=== PATIENT | female | born 1930 | race Hispanic/Latino ===

== ENCOUNTER 2017-09-07 14:36 | Emergency (ER) | payer OTHER, SELFPAY ==
[2017-09-07] MEDS ORDERED: FENTANYL CITR 100 MCG/2 ML ONE (15:50)
[2017-09-07] MEDS ORDERED: ONDANSETRON 4 MG/2 ML VIAL ONE (15:51)
[2017-09-07] MEDS ORDERED: NA CHLORIDE 0.9% 1,000 ML ONE (15:52)
--- NOTE | 2017-09-07 16:09 | RAD REPORT ---
EXAM DESCRIPTION: CT - Pelvis Wo Cont - 09/07/2017 3:45 pm CLINICAL HISTORY: History of fall with left-sided hip pain. COMPARISON: None. TECHNIQUE: All CT scans are performed using dose optimization technique as appropriate and may inclu de automated exposure control or mA/KV adjustment according to patient size. FINDINGS: Prominent osteopenia is present. Cortical regularity is noted along the anterior aspect of the left sacral ala, likely indicating a sacral insufficiency fracture. Proximal left femur demonstr ates hardware in place. No evidence of hardware loosening or infection. Slight angulation of the inferior coccygeal segments is noted which may be related to previous trauma . No acute intrapelvic finding such as hematoma or pathologic fluid. Sigmoid diverticulosis is noted wi thout diverticulitis. Aortic atherosclerosis is seen. IMPRESSION: Insufficiency fracture suspected left sacral ala. Proximal femoral orthopedic hardware is present without evidence of loosening. Pronounced osteopenia.
[2017-09-07 16:27] LABS: Absolute Lymphocytes (CBC) 1.7 K/uL (0.7-4.9); Absolute Monocytes 0.6 K/uL (0.1-1.3); Absolute Neutrophil 5.6 K/uL (1.8-8.0); Basophils % 0.4 % (0-1.3); Eosinophils % 0.3 % (0-4.4); Hematocrit 36.4 % (36.0-45.0); Lymphocytes % 21.7 % (15.3-44.8); MCH 29.8 pg (27.0-35.0); MCV 88.2 fL (80-100); Monocytes % 7.8 % (3.3-12.3); RBC Red Blood Cell Count 4.12 M/uL (3.86-4.86)
[2017-09-07 16:35] LABS: Protime INR 0.87
[2017-09-07 16:41] LABS: Bicarbonate 28 mEq/L (21-31); Glucose Level 79 mg/dL (65-120); Potassium 4.1 mEq/L (3.6-5.0); Sodium Level 140 mEq/L (135-145)
--- NOTE | 2017-09-07 16:45 | RAD REPORT ---
EXAM DESCRIPTION: RAD - Hip Left 2 View - 09/07/2017 4:24 pm CLINICAL HISTORY: Fall several days earlier, persistent hip pain COMPARISON: None. FINDINGS: AP and frogleg views of the left hip were obtained. No acute fracture changes identified. Fracture fixation hardware is in place. No breakage of the hardware. Bones are diffusely osteopenic. Joint space narrowing is seen. No AVN or focal acute femoral head process. There are degenerative celi nges to the articular surfaces of both the femur and acetabulum. No pathologic bone process. Left hem ipelvis is grossly normal but limited in detail. Sacral ala is obscured. No periarticular mass or hematoma. 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 No acute bone finding identifiable.
[2017-09-07 16:47] LABS: ALT/SGPT 30 IU/L (10-60); AST/SGOT 21 IU/L (10-42); Albumin 3.2 g/dL (3.2-5.5); Alkaline Phosphatase 117 IU/L (42-121); BUN Blood Urea Nitrogen 13 mg/dL (6-20); Bilirubin Direct 0.1 mg/dL (0-0.2); Bilirubin Total 0.4 mg/dL (0.3-1.2); Creatine Phosphokinase 24 IU/L (22-269); Magnesium 1.5 mg/dL (1.8-2.5); Protein, Total 6.5 g/dL (6.0-8.3)
--- NOTE | 2017-09-07 16:47 | RAD REPORT ---
EXAM DESCRIPTION: RAD - Pelvis - 09/07/2017 4:24 pm CLINICAL HISTORY: Persistent pelvic and hip pain following fall several days earlier COMPARISON: None. TECHNIQUE: AP imaging of the pelvis was obtained. FINDINGS: Bones are diffusely osteopenic which limits assessment. This is particularly true of the l ower lumbar spine, sacral ala and SI joints. Degenerative changes are present at both hip joints. Vilma gical hardware is also present on the left. No fracture or dislocation of either proximal femur ident ifiable. No lower pelvic fractures seen. Lower lumbar, SI joint and sacral ala regions are too obscur ed by the osteopenia and overlying bowel to allow an accurate assessment. IMPRESSION: Osteopenic, postsurgical and degenerative changes are present. No acute fracture changes are seen though the sacral ala, SI joints and upper pelvis are quite limite d in assessment.
--- NOTE | 2017-09-07 16:49 | RAD REPORT ---
EXAM DESCRIPTION: RAD - Chest Single View - 09/07/2017 4:24 pm CLINICAL HISTORY: Fall, shortness of breath, pelvic and hip pain, possible acute fracture COMPARISON: May 2017 TECHNIQUE: AP portable chest image was obtained 1616 hours . 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 With fibrosis and shallow inspiration, early interstitial infiltrate or edema could be masked. No peripheral conso lidation or mass lesion. Heart size is not substantially different. Trachea is midline. No measurable pleural effusion and no pneumothorax. No gross bony abnormality seen. No acute aortic findings suspe cted. IMPRESSION: Extensive interstitial fibrotic pattern accentuated by shallow inspiration. In this setting early interstitial edema or infiltrate could be masked.
--- NOTE | 2017-09-07 17:08 | ER ---
Nurse's Notes [facility] Name: Brenda Matamoros Age: 87 yrs Sex: Female : 1930 Arrival Date: 09/07/2017 Time: 14:40 Bed 30 Private MD: Diagnosis: Fall due to bumping against object;Fracture of unspecified parts of lumbosacral spine and pelvis-left sacral ala fracture, insufficent;Hypomagnesemia;Cystitis Presentation: 09/07 14:43 Presenting complaint: Child states: Left hip pain since fall on Monday. Slip and fall aj onto bottom on Monday while in bathroom. Care prior to arrival: None. Mechanism of Injury: Fall from standing position. Trauma event details: Injury occurred in the [facility], Injury occurred: at home. Injury occurred: September 03, 2017. 14:43 Acuity: FARZANEH 4 aj 14:43 Method Of Arrival: Wheelchair aj 14:46 Transition of care: patient was not received from another setting of care. Onset of aj symptoms was September 07, 2017. Initial Sepsis Screen: Does the patient meet any 2 criteria? No. Patient's initial sepsis screen is negative. Does the patient have a suspected source of infection? No. Patient's initial sepsis screen is negative. Trauma Activation: Not Applicable Physician: ED Physician; Name: ; Notified At: ; Arrived At: Physician: General Surgeon; Name: ; Notified At: ; Arrived At: Physician: Radiology; Name: ; Notified At: ; Arrived At: Physician: Respiratory; Name: ; Notified At: ; Arrived At: Physician: Lab; Name: ; Notified At: ; Arrived At: Historical: - Allergies: 14:49 No Known Allergies; aj - Home Meds: 14:49 Zestril 10 mg oral tab 1 tab once daily [Active]; aspirin 81 mg Oral chew 1 tab once aj daily [Active]; levetiracetam 500 mg oral tab 1 tab 2 times per day [Active]; magnesium oxide 400 mg Oral cap [Active]; Naproxen Oral [Active]; - PMHx: 14:49 Brain Tumor; Alzheimers; aj - PSHx: 14:49 Appendectomy; aj - Immunization history: Last tetanus immunization: - up to date. - Social history:: Smoking status: Patient/guardian denies using tobacco. - Family history:: not pertinent. Screenin:20 Abuse screen: Denies threats or abuse. Nutritional screening: No deficits noted. mb3 Tuberculosis screening: No symptoms or risk factors identified. Fall Risk No secondary diagnosis (0 pts). No IV (0 pts). Ambulatory Aid- Crutches/Cane/Walker (15 pts). Gait- Normal/Bed Rest/Wheelchair (0 pts) Mental Status- Oriented to own ability (0 pts). Total Horta Fall Scale indicates No Risk (0-24 pts). Primary Survey: 14:43 A: Airway: patent. Breathing/Chest: Respiratory pattern: regular, Respiratory effort: aj spontaneous, unlabored, Breath sounds: clear, bilaterally. Circulation: Skin color: pink, Skin temperature: warm, dry. Disability Alert. 15:00 Reassessment Airway Airway Patent Breathing/Chest Respiratory pattern Regular mb3 Respiratory effort Spontaneous Unlabored. Assessment: 14:43 General: Appears in no apparent distress. comfortable, Behavior is calm, cooperative, aj appropriate for age. Pain: Complains of pain in left hip. Neuro: Level of Consciousness is awake, alert, obeys commands, Oriented to person, place, time, situation, Appropriate for age. Respiratory: Airway is patent Respiratory effort is even, unlabored, Respiratory pattern is regular, symmetrical. Derm: Skin is intact, is healthy with good turgor, Skin is pink, warm \T\ dry. normal. 15:19 Reassessment: No changes from previously documented assessment. Patient and/or family mb3 updated on plan of care and expected duration. Pain level reassessed. Patient is alert, oriented x 3, equal unlabored respirations, skin warm/dry/pink. Patient denies pain at this time. only has pain when ambulating. . 16:30 Reassessment: No changes from previously documented assessment. Patient and/or family mb3 updated on plan of care and expected duration. Pain level reassessed. Patient is alert, oriented x 3, equal unlabored respirations, skin warm/dry/pink. Patient denies pain at this time. 17:35 Reassessment: No changes from previously documented assessment. Patient and/or family mb3 updated on plan of care and expected duration. Pain level reassessed. Patient is alert, oriented x 3, equal unlabored respirations, skin warm/dry/pink. Patient denies pain at this time. Patient states symptoms have improved. 19:05 Reassessment: No changes from previously documented assessment. Patient and/or family mb3 updated on plan of care and expected duration. Pain level reassessed. Patient is alert, oriented x 3, equal unlabored respirations, skin warm/dry/pink. Patient denies pain at this time. 20:22 Reassessment: Patient appears in no apparent distress at this time. No changes from mb3 previously documented assessment. Patient and/or family updated on plan of care and expected duration. Pain level reassessed. Patient is alert, oriented x 3, equal unlabored respirations, skin warm/dry/pink. Patient denies pain at this time. 21:00 Reassessment: Patient appears in no apparent distress at this time. No changes from mb3 previously documented assessment. Patient and/or family updated on plan of care and expected duration. Pain level reassessed. Patient is alert, oriented x 3, equal unlabored respirations, skin warm/dry/pink. Patient denies pain at this time. Vital Signs: 14:43 BP 158 / 63; Pulse 90; Resp 16; Temp 98.0; Pulse Ox 100% on R/A; Weight 43.09 kg; aj Height 4 ft. 11 in. (149.86 cm); 16:11 BP 200 / 77; Pulse 84; Resp 14; Pulse Ox 100% on R/A; Pain 0/10; mb3 16:30 BP 156 / 64; Pulse 76; Resp 18; Pulse Ox 97% on R/A; mb3 17:15 BP 177 / 68; Pulse 77; Resp 16; Pulse Ox 97% on R/A; mb3 18:56 BP 169 / 103; Pulse 79; Resp 17; Temp 98.2(O); Pulse Ox 99% on R/A; mb3 20:00 BP 176 / 68; Pulse 85; Resp 16; Pulse Ox 98% on R/A; Pain 0/10; mb3 20:59 BP 182 / 71; Pulse 85; Resp 18; Pulse Ox 98% ; mb3 14:43 Body Mass Index 19.19 (43.09 kg, 149.86 cm) aj [place] Coma Score: 14:43 Eye Response: spontaneous(4). Verbal Response: oriented(5). Motor Response: obeys aj commands(6). Total: 15. Trauma Score (Adult): 14:43 Eye Response: spontaneous(1); Verbal Response: oriented(1); Motor Response: obeys aj commands(2); Systolic BP: > 89 mm Hg(4); Respiratory Rate: 10 to 29 per min(4); Shelli Score: 15; Trauma Score: 12 ED Course: 14:40 Patient arrived in ED. sb2 14:45 Triage completed. aj 14:49 Arm band placed on right wrist. Patient placed in an exam room. aj 15:01 Armand Ansari MD is Attending Physician. celi 15:05 Richard Kirk, MERLYN is Primary Nurse. mb3 15:20 Patient has correct armband on for positive identification. Bed in low position. Call mb3 light in reach. Side rails up X 1. 15:21 Patient maintains SpO2 saturation greater than 95% on room air. Thermoregulation: warm mb3 blanket given to patient. 15:[address] vr 15:46 Pelvis Wo Cont In Process Unspecified. EDMS 15:49 CT completed. Patient tolerated procedure well. Patient moved back from CT. nj 16:08 EKG done, by clinical dietetic technician. reviewed by Armand Ansari MD. dt2 16:10 Inserted saline lock: 18 gauge in right forearm, using aseptic technique. mb3 16:22 XRAY Chest (1 view) In Process Unspecified. EDMS 16:22 Pelvis XRAY In Process Unspecified. EDMS 16:22 Hip Left 2 View XRAY In Process Unspecified. EDMS 17:08 Campos Panchal MD is Referral Physician. celi 21:01 No provider procedures requiring assistance completed. IV discontinued, intact, mb3 bleeding controlled, No redness/swelling at site. Pressure dressing applied. Administered Medications: 16:09 Drug: fentaNYL (PF) 25 mcg Route: IVP; Site: right forearm; mb3 16:47 Follow up: Response: No adverse reaction; Pain is decreased mb3 20:57 Follow up: Response: No adverse reaction; Pain is decreased mb3 16:09 Drug: Zofran 4 mg Route: IVP; Site: right forearm; mb3 16:47 Follow up: Response: No adverse reaction mb3 20:57 Follow up: Response: No adverse reaction mb3 16:47 Drug: NS 0.9% 1000 ml Route: IV; Rate: 125 ml/hr; Site: right forearm; mb3 20:57 Follow up: Response: No adverse reaction; IV Status: Completed infusion; IV Intake: mb3 375ml 17:45 Drug: Magnesium Sulfate 1 grams Route: IVPB; Infused Over: 1 hrs; Site: right forearm; mb3 20:56 Follow up: Response: No adverse reaction; IV Status: Completed infusion; IV Intake: [id number] 19:17 Drug: Rocephin - (cefTRIAXone) 1 grams Route: IVPB; Infused Over: 30 mins; Site: right mb3 forearm; 20:56 Follow up: Response: No adverse reaction; IV Status: Completed infusion; IV Intake: [id number] Intake: 20:56 IV: 50ml; Total: 50ml. mb3 20:56 IV: 25ml; Total: 75ml. mb3 20:57 IV: 375ml; Total: 450ml. mb3 21:03 PO: 60ml; Total: 510ml. mb3 Output: 21:03 Urine: 300ml (Voided); Total: 300ml. mb3 Outcome: 17:08 Discharge ordered by . celi 21:01 Discharged to home ambulatory, with family. mb3 21:01 Condition: stable 21:01 Discharge instructions given to patient, family, Instructed on discharge instructions, follow up and referral plans. medication usage, Demonstrated understanding of instructions, follow-up care, medications, Prescriptions given X 2. 21:03 Patient's length of stay in the Emergency Department was greater than 2 hours. mb3 21:04 Patient left the ED. mb3 Signatures: Dispatcher [employer] EDMS Radha Galeas RN RN aj Anderson, Corey, MD MD cha Davis, Victoria vr Jordan, Nathan nj Billeau, Sheri sb2 Teague, Danielle dt2 Richard Kirk RN RN mb3 Corrections: (The following items were deleted from the chart) 19:03 18:56 BP 169 / 103; Pulse 79bpm; Resp 17bpm; Pulse Ox 99% RA; Temp 102.7F Oral; mb3 mb3
--- NOTE | 2017-09-07 17:08 | EDPHYS ---
Physician Documentation [facility] Name: Brenda Matamoros Age: 87 yrs Sex: Female : 1930 Arrival Date: 09/07/2017 Time: 14:40 Bed 30 Private MD: ED Physician Armand Ansari HPI: 09/07 15:29 This 87 yrs old Female presents to ER via Wheelchair with complaints of Fall celi Injury, Hip Pain. 15:29 Details of fall: The patient fell from an upright position, while walking. Onset: The celi symptoms/episode began/occurred 4 day(s) ago. Associated injuries: The patient sustained left hip, left gluteal fold, left inner thigh and left upper thigh, painful injury. Severity of symptoms: At their worst the symptoms were mild, in the emergency department the symptoms are unchanged. The patient has not experienced similar symptoms in the past. Historical: - Allergies: 14:49 No Known Allergies; aj - Home Meds: 14:49 Zestril 10 mg oral tab 1 tab once daily [Active]; aspirin 81 mg Oral chew 1 tab once aj daily [Active]; levetiracetam 500 mg oral tab 1 tab 2 times per day [Active]; magnesium oxide 400 mg Oral cap [Active]; Naproxen Oral [Active]; - PMHx: 14:49 Brain Tumor; Alzheimers; aj - PSHx: 14:49 Appendectomy; aj - Immunization history: Last tetanus immunization: - up to date. - Social history:: Smoking status: Patient/guardian denies using tobacco. - Family history:: not pertinent. ROS: 15:29 Constitutional: Negative for fever, chills, and weight loss, Eyes: Negative for injury, celi pain, redness, and discharge, ENT: Negative for injury, pain, and discharge, Neck: Negative for injury, pain, and swelling, Cardiovascular: Negative for chest pain, palpitations, and edema, Respiratory: Negative for shortness of breath, cough, wheezing, and pleuritic chest pain, Abdomen/GI: Negative for abdominal pain, nausea, vomiting, diarrhea, and constipation, Back: Negative for injury and pain, : Negative for injury, bleeding, discharge, and swelling, Skin: Negative for injury, rash, and discoloration, Neuro: Negative for headache, weakness, numbness, tingling, and seizure, Psych: Negative for depression, anxiety, suicide ideation, homicidal ideation, and hallucinations, Allergy/Immunology: Negative for hives, rash, and allergies, Endocrine: Negative for neck swelling, polydipsia, polyuria, polyphagia, and marked weight changes, Hematologic/Lymphatic: Negative for swollen nodes, abnormal bleeding, and unusual bruising. 15:29 MS/extremity: Positive for injury or acute deformity, decreased range of motion, of the left hip, left gluteal fold, left inner thigh and left upper thigh. Exam: 15:29 Constitutional: This is a well developed, well nourished patient who is awake, alert, celi and in no acute distress. Head/Face: Normocephalic, atraumatic. Eyes: Pupils equal round and reactive to light, extra-ocular motions intact. Lids and lashes normal. Conjunctiva and sclera are non-icteric and not injected. Cornea within normal limits. Periorbital areas with no swelling, redness, or edema. ENT: Nares patent. No nasal discharge, no septal abnormalities noted. Tympanic membranes are normal and external auditory canals are clear. Oropharynx with no redness, swelling, or masses, exudates, or evidence of obstruction, uvula midline. Mucous membranes moist. Neck: Trachea midline, no thyromegaly or masses palpated, and no cervical lymphadenopathy. Supple, full range of motion without nuchal rigidity, or vertebral point tenderness. No Meningismus. Chest/axilla: Normal chest wall appearance and motion. Nontender with no deformity. No lesions are appreciated. Cardiovascular: Regular rate and rhythm with a normal S1 and S2. No gallops, murmurs, or rubs. Normal PMI, no JVD. No pulse deficits. Respiratory: Lungs have equal breath sounds bilaterally, clear to auscultation and percussion. No rales, rhonchi or wheezes noted. No increased work of breathing, no retractions or nasal flaring. Abdomen/GI: Soft, non-tender, with normal bowel sounds. No distension or tympany. No guarding or rebound. No evidence of tenderness throughout. Back: No spinal tenderness. No costovertebral tenderness. Full range of motion. Female : Normal external genitalia. Skin: Warm, dry with normal turgor. Normal color with no rashes, no lesions, and no evidence of cellulitis. Neuro: Awake and alert, GCS 15, oriented to person, place, time, and situation. Cranial nerves II-XII grossly intact. Motor strength 5/5 in all extremities. Sensory grossly intact. Cerebellar exam normal. Normal gait. Psych: Awake, alert, with orientation to person, place and time. Behavior, mood, and affect are within normal limits. 15:29 Musculoskeletal/extremity: ROM: limited active range of motion, limited passive range of motion, Circulation is intact in all extremities. the left hip, left gluteal fold, left inner thigh and left upper thigh Compartment Syndrome exam of affected extremity: is normal. DVT Exam: No signs of deep vein thrombosis. no swelling, negative Homans' sign noted on exam, no appreciated bluish discoloration, no erythema, no increased warmth, pain, tenderness, that is moderate, of the left leg, of the left hip, left gluteal fold, left inner thigh and left upper thigh. Vital Signs: 14:43 BP 158 / 63; Pulse 90; Resp 16; Temp 98.0; Pulse Ox 100% on R/A; Weight 43.09 kg; aj Height 4 ft. 11 in. (149.86 cm); 16:11 BP 200 / 77; Pulse 84; Resp 14; Pulse Ox 100% on R/A; Pain 0/10; mb3 16:30 BP 156 / 64; Pulse 76; Resp 18; Pulse Ox 97% on R/A; mb3 17:15 BP 177 / 68; Pulse 77; Resp 16; Pulse Ox 97% on R/A; mb3 18:56 BP 169 / 103; Pulse 79; Resp 17; Temp 98.2(O); Pulse Ox 99% on R/A; mb3 20:00 BP 176 / 68; Pulse 85; Resp 16; Pulse Ox 98% on R/A; Pain 0/10; mb3 20:59 BP 182 / 71; Pulse 85; Resp 18; Pulse Ox 98% ; mb3 14:43 Body Mass Index 19.19 (43.09 kg, 149.86 cm) [place] Coma Score: 14:43 Eye Response: spontaneous(4). Verbal Response: oriented(5). Motor Response: obeys aj commands(6). Total: 15. Trauma Score (Adult): 14:43 Eye Response: spontaneous(1); Verbal Response: oriented(1); Motor Response: obeys aj commands(2); Systolic BP: > 89 mm Hg(4); Respiratory Rate: 10 to 29 per min(4); Shelli Score: 15; Trauma Score: 12 MDM: 15:01 Patient medically screened. [facility] 17:09 Data reviewed: vital signs, nurses notes, lab test result(s), EKG, radiologic studies, [facility] CT scan, plain films. 09/07 15: Order name: Basic Metabolic Panel; Complete Time: 17: [facility] 09/07 15: Order name: BNP; Complete Time: 17: [facility] 09/07 15: Order name: CBC with Diff; Complete Time: 17: [facility] 09/07 15: Order name: Ckmb; Complete Time: 17: [facility] 09/07 15: Order name: CPK; Complete Time: 17: [facility] 09/07 15:29 Order name: LFT's; Complete Time: 17: [facility] 09/07 15:29 Order name: Magnesium; Complete Time: 17: [facility] 09/07 15:29 Order name: PT-INR; Complete Time: 17: [facility] 09/07 15:29 Order name: Ptt, Activated; Complete Time: 17: [facility] 09/07 15:29 Order name: Troponin (emerg Dept Use Only); Complete Time: 17: [facility] 09/07 15:29 Order name: XRAY Chest (1 view); Complete Time: 17: [facility] 09/07 15:29 Order name: Pelvis XRAY; Complete Time: 17: [facility] 09/07 15:29 Order name: Urine Culture [facility] 09/07 19:00 Order name: Urine Dipstick--Ancillary (enter results) em1 09/07 15:29 Order name: EKG; Complete Time: 15:[address] [facility] 09/07 15:29 Order name: Cardiac monitoring; Complete Time: 16: [facility] 09/07 15:29 Order name: EKG - Nurse/Tech; Complete Time: 16: [facility] 09/07 15:29 Order name: IV Saline Lock; Complete Time: 16: [facility] 09/07 15:29 Order name: Labs collected and sent; Complete Time: 16: [facility] 09/07 15:29 Order name: O2 Per Protocol; Complete Time: 16: [facility] 09/07 15:29 Order name: O2 Sat Monitoring; Complete Time: 16:[address] [facility] 09/07 15:29 Order name: Hip Left 2 View XRAY; Complete Time: 17:[address] [facility] 09/07 15:34 Order name: Pelvis Wo Cont; Complete Time: 16:23 EDMS 09/07 15:29 Order name: Urine Dipstick-Ancillary (obtain specimen); Complete Time: 18:[address] [facility] Administered Medications: 16:09 Drug: fentaNYL (PF) 25 mcg Route: IVP; Site: right forearm; mb3 16:47 Follow up: Response: No adverse reaction; Pain is decreased mb3 20:57 Follow up: Response: No adverse reaction; Pain is decreased mb3 16:09 Drug: Zofran 4 mg Route: IVP; Site: right forearm; mb3 16:47 Follow up: Response: No adverse reaction mb3 20:57 Follow up: Response: No adverse reaction mb3 16:47 Drug: NS 0.9% 1000 ml Route: IV; Rate: 125 ml/hr; Site: right forearm; mb3 20:57 Follow up: Response: No adverse reaction; IV Status: Completed infusion; IV Intake: mb3 375ml 17:45 Drug: Magnesium Sulfate 1 grams Route: IVPB; Infused Over: 1 hrs; Site: right forearm; mb3 20:56 Follow up: Response: No adverse reaction; IV Status: Completed infusion; IV Intake: [id number] 19:17 Drug: Rocephin - (cefTRIAXone) 1 grams Route: IVPB; Infused Over: 30 mins; Site: right mb3 forearm; 20:56 Follow up: Response: No adverse reaction; IV Status: Completed infusion; IV Intake: [id number] Disposition: 09/07/17 17:08 Discharged to Home. Impression: Fall due to bumping against object, Fracture of unspecified parts of lumbosacral spine and pelvis - left sacral ala fracture, insufficent, Hypomagnesemia, Cystitis. - Condition is Stable. - Discharge Instructions: Lumbosacral Strain, Fall Prevention and Home Safety, Hypomagnesemia, Simple Pelvic Fracture, Adult, Fall Prevention and Home Safety, [id number], Hip Pain. - Prescriptions for Tylenol- Codeine #3 300-30 mg Oral Tablet - take 1 tablet by ORAL route every 6 hours As needed; 26 tablet. Augmentin 500- 125 mg Oral Tablet - take 1 tablet by ORAL route every 12 hours for 10 days; 14 tablet. - Medication Reconciliation Form, Thank You Letter, Antibiotic Education, Prescription Opioid Use form. - Follow up: Private Physician; When: 2 - 3 days; Reason: Recheck today's complaints, Continuance of care, Re-evaluation by your physician. Follow up: Campos Panchal; When: 2 - 3 days; Reason: Recheck today's complaints, Re-evaluation by your physician. - Problem is new. - Symptoms have improved. Signatures: Dispatcher [employer]DA[employer] Radha Galeas, RN Armand Rowley MD MD cha Barnett, Mark, RN RN mb3 Corrections: (The following items were deleted from the chart) 15:39 15:34 Hip Left Wo Con ordered. [facility] 15:39 15:34 Hip Right Wo Con ordered. [facility] 18:56 17:08 09/07/2017 17:08 Discharged to Home. Impression: Fall due to bumping against celi object; Fracture of unspecified parts of lumbosacral spine and pelvis - left sacral ala fracture, insufficent; Hypomagnesemia. Condition is Stable. Discharge Instructions: Lumbosacral Strain, Fall Prevention and Home Safety, Simple Pelvic Fracture, Adult, Fall Prevention and Home Safety, [id number], Hip Pain. Prescriptions for Tylenol-Codeine #3 300-30 mg Oral Tablet - take 1 tablet by ORAL route every 6 hours As needed; 26 tablet. and Forms are Medication Reconciliation Form, Thank You Letter, Antibiotic Education, Prescription Opioid Use. Follow up: Private Physician; When: 2 - 3 days; Reason: Recheck today's complaints, Continuance of care, Re-evaluation by your physician. Follow up: Campos Panchal; When: 2 - 3 days; Reason: Recheck today's complaints, Re-evaluation by your physician. Problem is new. Symptoms have improved. [facility] 21:04 18:56 09/07/2017 17:08 Discharged to Home. Impression: Fall due to bumping against mb3 object; Fracture of unspecified parts of lumbosacral spine and pelvis - left sacral ala fracture, insufficent; Hypomagnesemia; Cystitis. Condition is Stable. Discharge Instructions: Lumbosacral Strain, Fall Prevention and Home Safety, Simple Pelvic Fracture, Adult, Fall Prevention and Home Safety, [id number], Hip Pain, Hypomagnesemia. Prescriptions for Tylenol-Codeine #3 300-30 mg Oral Tablet - take 1 tablet by ORAL route every 6 hours As needed; 26 tablet. and Forms are Medication Reconciliation Form, Thank You Letter, Antibiotic Education, Prescription Opioid Use. Follow up: Private Physician; When: 2 - 3 days; Reason: Recheck today's complaints, Continuance of care, Re-evaluation by your physician. Follow up: Campos Panchal; When: 2 - 3 days; Reason: Recheck today's complaints, Re-evaluation by your physician. Problem is new. Symptoms have improved. celi
[2017-09-07] MEDS ORDERED: Magnesium Sulfate 2gm IVPB 2 G/50 ML BAG IV ONE (17:45)
[2017-09-07] MEDS ORDERED: NA CHLORIDE 0.9% 50 ML IV ONE (19:14)
[2017-09-07] MEDS ORDERED: CEFTRIAXONE 1000 MG/VIAL ONE (19:14)
[2017-09-07 20:54] LABS: Urine Blood TRACE (NEG); Urine Glucose NEGATIVE (NEG); Urine Protein NEGATIVE (NEG); Urine Specific Gravity 1.015 (1.005-1.030)
[2017-09-07 21:18] VITALS: TEMP 98.2
[2017-09-07 21:19] VITALS: O2SAT 98
[2017-09-07 21:21] VITALS: BP 182/71
--- NOTE | 2017-09-08 10:30 | EKG ---
Test Date: 2017-09-07 Test Time: 15:59:50 Section Housekeeper: YOEL MEASUREMENT RESULTS: Intervals: Rate: 78 UT: 110 QRSD: 82 QT: 374 QTc: 426 [place]: P: 27 UT: 110 QRS: -41 T: 63 INTERPRETIVE STATEMENTS: Sinus rhythm with short UT with occasional premature ventricular complexes Left axis deviation Abnormal ECG Compared to ECG 05/12/2017 08:50:21 Ventricular premature complex(es) now present Short UT interval now present Sinus tachycardia no longer present T-wave abnormality no longer present Electronically Signed On 09-08-17 10:27:22 CDT by Curt Rueda
== END 2017-09-07 21:04 | disposition home or self-care (01) ==
LOC: ER 14:36
DX: S32.10XA Unspecified fracture of sacrum, initial encounter for closed fracture (principal); W18.00XA Striking against unspecified object with subsequent fall, initial encounter; Y93.01 Activity, walking, marching and hiking; Y92.9 Unspecified place or not applicable; N30.90 Cystitis, unspecified without hematuria; E83.42 Hypomagnesemia; G30.9 Alzheimer's disease, unspecified; F02.80 Dementia in other diseases classified elsewhere, unspecified severity, without behavioral disturbance, psychotic disturbance, mood disturbance, and anxiety; Z79.82 Long term (current) use of aspirin
CPT/HCPCS: 36415; 71045; 72170; 72192; 80048; 80076; 81003; 82550; 82553; 83735; 83880; 84484; 85025; 85610; 85730; 87086; 87088; 93005; 96361; 96365; 96366; 96368; 96375; 99285; J2405; J3010; J3475; J7030

== ENCOUNTER 2017-09-21 16:55 | Emergency (ER) | payer SELFPAY ==
--- NOTE | 2017-09-21 17:57 | ER ---
Nurse's Notes [facility] Name: Brenda Matamoros Age: 87 yrs Sex: Female : 1930 Arrival Date: 09/21/2017 Time: 16:57 Bed Waiting Private MD: None, None Diagnosis: Presentation: 09/21 17:02 Presenting complaint: Patient states: Vomiting x 2 episodes this AM. Family reports aj patient was refusing to speak to them earlier. Family reports patient was trembling earlier, but denies pain. Transition of care: patient was not received from another setting of care. Onset of symptoms was September 21, 2017. Care prior to arrival: None. 17:02 Method Of Arrival: Wheelchair aj 17:02 Acuity: FARZANEH 3 aj Triage Assessment: 17:04 General: Appears in no apparent distress. comfortable, Behavior is calm, cooperative, aj appropriate for age. Pain: Denies pain. Neuro: Level of Consciousness is awake, alert, obeys commands, Oriented to person, place, time, situation. Respiratory: Airway is patent Respiratory effort is even, unlabored, Respiratory pattern is regular, symmetrical. GI: Reports vomiting. Derm: Skin is intact, is healthy with good turgor, Skin is pink, warm \\T\\ dry. normal. Historical: - Allergies: 17:04 No Known Allergies; aj - Home Meds: 17:04 aspirin 81 mg Oral chew 1 tab once daily [Active]; levetiracetam 500 mg Oral tab 1 tab aj 2 times per day [Active]; magnesium oxide 400 mg Oral cap [Active]; Naproxen Oral [Active]; Zestril 10 mg Oral tab 1 tab once daily [Active]; - PMHx: 17:04 BRAIN TUMOR; Alzheimers; aj - PSHx: 17:04 Appendectomy; aj - Immunization history:: Adult Immunizations up to date. - Social history:: Smoking status: Patient/guardian denies using tobacco. Assessment: 17:55 Reassessment: Family states, "She wants to go home because she is tired and wants to go aj to sleep. She is feeling better. We will bring her back if it comes back". Vital Signs: 17:04 BP 168 / 79; Pulse 105; Resp 20; Temp 98.5; Pulse Ox 97% on R/A; Weight 44.91 kg; aj Height 5 ft. 0 in. (152.40 cm); 17:04 Body Mass Index 19.33 (44.91 kg, 152.40 cm) aj ED Course: 16:57 Patient arrived in ED. mr 16:57 None, None is Private Physician. mr 17:03 Triage completed. aj 17:04 Arm band placed on left wrist. Patient placed in waiting room, Patient notified of wait aj time. 17:56 Isael Rush MD is Attending Physician. aj Administered Medications: No medications were administered Outcome: 17:55 Eloped from waiting room, before seeing physician aj 17:56 Patient left the ED. aj Signatures: Radha Galeas, RN RN aj [place] mr
[2017-09-21 17:59] VITALS: BP 168/79; TEMP 98.5; O2SAT 97
== END 2017-09-21 17:56 | disposition left against medical advice (07) ==
LOC: ER 16:55
DX: Z02.9 Encounter for administrative examinations, unspecified (principal)
CPT/HCPCS: 99281